=== PATIENT | female | born 1940 | race Caucasian/White ===

== ENCOUNTER 2024-06-05 15:53 | Emergency (ER) | payer MEDICARE, SELFPAY ==
[2024-06-05 15:55] VITALS: BP 185/79; PULSE 78; RESP 16; TEMP 37; O2SAT 97; BMI 25.3
--- NOTE | 2024-06-05 16:25 | [facility].EDGENADL ---
Discharge Plan Disposition Patient Disposition: Home, Self-Care Chief Complaint: Extremity Problem,Nontraumatic Referrals Follow up/Referrals: Jayant Coker MD [Primary Care Provider] - See instructions Activity Restrictions/Add. Instructions Additional Instructions/Restrictions: Follow-up with your family doctor regarding this visit to the emergency department for further evaluation of your left leg pain. Workup today was negative. Call your family doctor to establish care for this visit to the emergency department and schedule follow-up within 48 hours to ensure improvement. If you have any worsening of your condition or any other concerning signs or symptoms, return to the emergency department or your primary care doctor for further evaluation. Clinical Impressions Clinical Impression: Acute pain of left lower extremity Discharge ED Provider: Robb Sellers General Adult HPI General Chief complaint: Extremity Problem,Nontraumatic Stated complaint: Legs swollen,painful Time Seen by Provider: 06/05/24 15:56 Mode of Arrival: Wheelchair Source of Information: Patient Limitations: No Limitations Description of Symptoms (Recalled from ER Triage Doc. by RN): Patient complaint of right lower leg swelling and pain for a couple of weeks. States she has not injured this leg. Reports seeing her PCP for this and was prescribed something for pain and now it is getting worse and going up her leg. History of Present Illness HPI narrative: Please note that above description of symptoms, in this electronic medical record under categorization of recalled from ER triage doctor by RN are reflective of an initial nursing assessment, however, is not reflective of my full history and physical exam that was personally taken and clarified. Consequentially, this preceding description of symptoms, which may include the patient's categorized chief complaint in the EMR, do not reflect my personal clinical impression, and the ultimate description of history of present illness and patient stated complaints should be deferred to this section of the note. Unless stated otherwise or congruent with this section of the note, additional signs, symptoms, or incongruence should be interpreted as inaccurate with my clinical impression. Related Data Allergies Allergy/AdvReac Type Severity Reaction Status Date / Time No Known Allergies Allergy Verified 06/05/24 16:10 [facility] Disclaimer: The information contained in this section may have been updated after the patient was seen, as this information can be updated by other users. Social History Smoking Status: Unknown if ever smoked alcohol intake: never current occupational status: retired Travel in the last 8 weeks: None ROS Obtained: Yes All systems reviewed & no additional complaints except as documented Physical Exam General General appearance: alert and in no apparent distress Head Head exam: atraumatic and normocephalic Eye Eye exam: Present normal appearance, PERRL and EOMI ENT ENT exam: Present mucous membranes moist Neck Neck exam: Present normal inspection, full ROM and trachea midline Respiratory Respiratory exam: Present normal lung sounds bilaterally; Absent respiratory distress, wheezes, stridor, accessory muscle use or prolonged expiratory phase Cardiovascular Cardiovascular exam: Present regular rate and normal rhythm Abdominal Exam Abdominal exam: Present soft; Absent distention, tenderness, guarding, rebound or rigidity Extremities Exam Extremities exam: Present tenderness and other (Left lower extremity from knee onward. No obvious or appreciable swelling as compared to the right. Pulses are thready, but equal and symmetric in bilateral lower extremities. No redness, or other outward signs of abnormality); Absent edema Neurological Exam Neurological exam: Present alert, oriented X3, CN II-XII intact and normal gait; Absent motor sensory deficit Skin Skin exam: Present warm and dry; Absent diaphoresis or erythema Medical Decision Making Medical Records Medical records reviewed: Yes I reviewed the patient's medical records. Toney Inquiry Pt receiving controlled substance: No Toney was queried for this patient: No Vital Signs: 06/05/24 15:55 06/05/24 16:30 06/05/24 18:00 Temperature 98.6 F Temperature Source Oral Pulse Rate 73 71 Pulse Rate [Radial] 78 Respiratory Rate 16 18 Blood Pressure 178/81 H 167/91 H Blood Pressure [Right Arm] 185/79 H Blood Pressure Mean 113 116 Blood Pressure Mean [Right Arm] 114 Blood Pressure Source [Right Arm] Automatic Cuff Blood Pressure Position [Right Arm] Sitting 02 Sat by Pulse Oximetry 97 97 99 Oxygen Delivery Method Room Air Room Air Lab Data Lab Results 06/05/24 16:50: WBC 6.4, RBC 3.68 L, Hgb 11.9 L, Hct 35.2 L, MCV 95.7, MCH 32.5 H, MCHC 33.9, RDW 13.8, Plt Count 278, MPV 8.1, Neut % (Auto) 54.4, Lymph % (Auto) 38.8, Tripp % (Auto) 4.4, Eos % (Auto) 2.0, Baso % (Auto) 0.5, Neut # (Auto) 3.5, Lymph # (Auto) 2.5, Tripp # (Auto) 0.3, Eos # (Auto) 0.1, Baso # (Auto) 0.0, ESR 57 H, PT 10.3, INR 0.91, APTT 27.2, D-Dimer 0.48, Sodium 140, Potassium 4.6, Chloride 111 H, Carbon Dioxide 24, Anion Gap 9.6, BUN 24 H, Creatinine 1.00, Estimated Creat Clear 45, Estimated GFR 53 L, Est GFR ( Amer) 64, Glucose 117 H, Calcium 9.4, Total Bilirubin 0.2, AST 34, ALT 21, Alkaline Phosphatase 80, Total Creatine Kinase 262 H, C-Reactive Protein 1.1, NT-Pro-B Natriuret Pep 184, Total Protein 7.2, Albumin 4.2, Globulin 3.0, Albumin/Globulin Ratio 1.4 06/05/24 16:50 06/05/24 16:50 Orders (Tests/Meds): ED MEDICATIONS Discontinued Medications Generic Name Dose Route Start Last Admin Trade Name Rina PRN Reason Stop Dose Admin Acetaminophen 1,000 mg 06/05/24 16:27 06/05/24 16:38 Acetaminophen 1,000mg/100ml Vial IV 06/05/24 16:28 1,000 mg ONCE ONE Administration Ketorolac Tromethamine 15 mg 06/05/24 16:27 06/05/24 16:38 Ketorolac 30mg/Ml Vial IV 06/05/24 16:28 15 mg ONCE ONE Administration ORDERS Category Date Time Status CBC w/Auto Diff [Complete Blood Count Auto Diff] Stat Lab 06/05/24 16:50 Completed CK [Creatine Kinase] Stat Lab 06/05/24 16:50 Completed CMP [Comprehensive Metabolic Panel] Stat Lab 06/05/24 16:50 Completed CRP [C-Reactive Protein] Stat Lab 06/05/24 16:50 Completed D-Dimer Stat Lab 06/05/24 16:50 Completed ESR [Erythrocyte Sedimentation Rate] Stat Lab 06/05/24 16:50 Completed NT Pro Brain Natriuretic Pep. Stat Lab 06/05/24 16:50 Completed PT INR [Prothrombin Time INR] Stat Lab 06/05/24 16:50 Completed PTT [Activated Partial Thrombo Time] Stat Lab 06/05/24 16:50 Completed Medical Decision Narrative: 83-year-old female history of IBS, COPD still smoking a pack and half a day not on home oxygen presenting with left lower extremity pain and swelling. Is been going on for about 2 weeks. Following with her family doctor for this. Was told to come to the emergency department given symptoms out of abundance of concern. Patient states that pain is better when she sitting still. Moderate while she is trying to bear weight and move. She states that it swells at the end of the day and gets better when resting and elevating. No injury. The pain starts in her foot, radiates upward toward her knee. No history of DVT or PE, no DVT or PE risk factors. History was obtained via conversation with patient. On arrival, patient hemodynamically stable, alert, oriented x4, appropriate, GCS 15, moving all extremities spontaneously, pupils equal and reactive to light. Full physical exam performed and significant for well-appearing woman who is in no acute distress. Left lower extremity not appreciably or noticeably more swollen than the right. Nontender to palpation on my exam. No evidence of erythema, palpable cord. Pulses are equal and symmetric although thready. Patient's nerve exam symmetric in lower extremities and intact. Compartments are soft. Differential includes peripheral arterial disease, CHF, DVT, vasculitis, myositis, among others. Patient was given Toradol and acetaminophen for symptomatic management and correction of underlying abnormalities. Workup independently interpreted and significant for nonactionable CBC or chemistry. CK negative. D-dimer negative. BNP negative. Lower extremity ultrasound was considered, but not deemed necessary given history, physical exam, and workup. Because patient at baseline without signs or symptoms of clinical decompensation, deemed appropriate for discharge. Results were relayed to patient who voiced understanding and were agreeable to outpatient management and follow up. I discussed my clinical impression with patient and answered all questions. At this time, the evidence for any other entities in the differential is insufficient to warrant any further testing or ED observation. This was explained as well. Advisory was given that persistent or worsening symptoms require further evaluation. I confirmed the understanding of this discussion. Erector Operator disclaimer Much of this encounter note is an electronic materials intern spoken language to printed text. Electronic materials intern of the spoken language may permit errors. Although I have reviewed the note, some errors may still exist. Critical Care Critical Care Time Critical Care Time: No
[2024-06-05 16:30] VITALS: BP 178/81; PULSE 73; RESP 18; O2SAT 97
[2024-06-05] MEDS: KETOROLAC 30MG/ML VIAL 15 MG IV (16:38)
[2024-06-05] MEDS: ACETAMINOPHEN 1,000MG/100ML VIAL 1000 MG IV (16:38)
[2024-06-05 17:04] LABS: Basophils % 0.5 % (0.1-2.0); Eosinophils # 0.1 K/mm3 (0.0-0.4); Hematocrit 35.2 % (37.0-47.0); Hemoglobin 11.9 g/dL (12.2-16.2); Lymphocytes # 2.5 K/mm3 (0.7-4.5); Lymphocytes % 38.8 % (10-50); Mean Corpuscular HGB Conc 33.9 g/dL (31.8-35.4); Mean Corpuscular Hemoglobin 32.5 pg (27.0-31.2); Mean Corpuscular Volume 95.7 fl (81-99); Mean Platelet Volume 8.1 fl (7.4-10.4); Monocytes # 0.3 K/mm3 (0.1-1.0); Monocytes % 4.4 % (1.7-9.3); Neutrophils # 3.5 K/mm3 (1.8-7.8); Neutrophils % 54.4 % (37.0-80.0); Platelet Count 278 K/mm3 (142-424); Red Blood Count 3.68 M/mm3 (4.20-5.40); Red Cell Distribution Width 13.8 % (11.5-17.5); White Blood Count 6.4 K/mm3 (4.8-10.8)
[2024-06-05 17:06] LABS: Chloride 111 mmol/L (98-107); Potassium 4.6 mmoL/L (3.5-5.1); Sodium 140 mmol/L (136-145)
[2024-06-05 17:09] LABS: Alanine Aminotransferase 21 U/L (12-78); Albumin Level 4.2 g/dl (3.5-5.0); Albumin/Globulin Ratio 1.4 (1.1-1.8); Alkaline Phosphatase 80 U/L (38-126); Anion Gap 9.6 mEq/L (5-15); Aspartate Amino Transferase 34 U/L (14-36); Bilirubin,Total 0.2 mg/dl (0.2-1.3); Blood Urea Nitrogen 24 mg/dl (7-17); Carbon Dioxide 24 mmol/L (22.0-30.0); Creatinine Clearance Estimated 45 mL/min (50-200); Estimated Glomerular Filt Rate 53 ml/min (>60); GFR (African American) 64 ML/MIN (>60); Total Protein,Serum 7.2 g/dl (6.3-8.2)
[2024-06-05 17:10] LABS: Calcium 9.4 mg/dl (8.4-10.2); Creatine Kinase 262 U/L (30-135); Glucose 117 mg/dl (74-100)
[2024-06-05 17:11] LABS: Activated Partial Thrombo Time 27.2 seconds (22.8-30.6); INR 0.91 (0.9-1.1); Prothrombin Time 10.3 seconds (10.1-12.5)
[2024-06-05 17:15] LABS: C-Reactive Protein 1.1 mg/L (0-4)
[2024-06-05 17:16] LABS: D-Dimer 0.48 ug/mL (0.0-0.5)
[2024-06-05 17:21] LABS: NT Pro Brain Natriuretic Pep. 184 pg/mL (0-450)
[2024-06-05 17:31] LABS: Erythrocyte Sedimentation Rate 57 mm/hr (0-30)
--- NOTE | 2024-06-05 17:50 | PC.NURSE ---
Rounded on pt. No needs voiced at this time. Visitor at BS. Call light within reach.
[2024-06-05 18:00] VITALS: BP 167/91; PULSE 71; O2SAT 99
--- NOTE | 2024-06-05 18:19 | PC.NURSE ---
Dr. Sellers at to update pt on results
[2024-06-05 18:25] VITALS: BP 167/91; PULSE 64; RESP 18; TEMP 37
[2024-06-05 18:26] VITALS: BP 167/91; PULSE 64; RESP 16; TEMP 37
== END 2024-06-05 18:27 | disposition home or self-care (01) ==
PROVIDERS: Emergency Provider Emergency Medicine; PCP Emergency Medicine
DX: M79.605 Pain in left leg (principal); F17.210 Nicotine dependence, cigarettes, uncomplicated; J44.9 Chronic obstructive pulmonary disease, unspecified
CPT/HCPCS: 80053; 82550; 83880; 85025; 85378; 85610; 85651; 85730; 86140; 96374; 96375; 99284; J0131; J1885